=== PATIENT | female | born 1990 | race African-American/Black ===

== ENCOUNTER 2017-01-31 09:37 | Emergency (ER) | payer OTHER ==
[~2017-01-31] VITALS: Ht 172.7 cm; Wt 61.2 kg
[2017-01-31 09:37] VITALS: BP_SYST 143
--- NOTE | 2017-01-31 09:37 | NUR ---
BROUGHT BACK TO BED #8 AND TRIAGED. REPORT GIVEN TO YEN
--- NOTE | 2017-01-31 09:40 | NUR ---
ER at bedside examining patient.
--- NOTE | 2017-01-31 09:40 | NUR ---
Pt states has abdominal pain, diarrhea, nausea for the past couple days. Pt states not able to eat or drink and pain is 10/10. Pt has weakness and chills but no fever. No other injuries/complaints per pt or noted.
[2017-01-31] MEDS ORDERED: NACL 0.9% 1,000 ML IV ONE (10:07)
[2017-01-31] MEDS ORDERED: HALOPERIDOL LACTATE 5 MG/ML VIAL IVP ONE (10:15)
[2017-01-31 10:16] LABS: BILIRUBIN,URINE NEGATIVE (NEGATIVE); BLOOD, URINE NEGATIVE (NEGATIVE); CLARITY/URINE SL HAZY (CLEAR); COLOR,URINE YELLOW (YELLOW); GLUCOSE,URINE NEGATIVE (NEGATIVE); KETONES,URINE 2+ (NEGATIVE); LEUKOCYTE ESTERASE ,URINE NEGATIVE (NEGATIVE); NITRITE, URINE NEGATIVE (NEGATIVE); PH,URINE 8.5 (5.0-8.0); PROTEIN URINE 1+ (NEGATIVE)
[2017-01-31 10:23] LABS: EOSINOPHILS # (AUTO) 0.1 K/uL (0.0-0.4); EOSINOPHILS % (AUTO) 1.2 % (0.0-4.0); LYMPHOCYTES # (AUTO) 1.4 K/uL (1.0-5.5)
[2017-01-31 10:24] LABS: BACTERIA,URINE FEW /HPF (None Seen); MUCUS,URINE 1+ /LPF (None Seen); RBC,URINE 0-3 /HPF (0-3); WBC,URINE 0-3 /HPF (0-3)
[2017-01-31 10:25] LABS: HEMATOCRIT 40.5 % (36-48); HEMOGLOBIN 13.5 g/dL (12.0-16.0); MEAN CORPUSCULAR HEMOGLOBIN 30 pg (27-31); MEAN CORPUSCULAR HGB CONC 33 % (32-36); MEAN CORPUSCULAR VOLUME 89 fL (79.0-98.0); PLATELET COUNT (AUTO) 277 K/uL (130-430); RED BLOOD CELL COUNT(AUTO) 4.55 MIL/uL (4.2-6.2); RED CELL DISTRIBUTION WIDTH 14.1 % (9.0-15.0); WHITE BLOOD COUNT (AUTO) 12.2 K/uL (4.8-10.8)
[2017-01-31 10:29] LABS: LYMPHOCYTES % (AUTO) 11.3 % (20.5-51.5); NEUTROPHILS % (AUTO) 83.1 % (40.0-70.0)
[2017-01-31 10:30] LABS: BASOPHILS # (AUTO) 0.2 K/uL (0.0-0.2); BASOPHILS % (AUTO) 1.8 % (0.0-2.0); MONOCYTES # (AUTO) 0.3 K/uL (0.0-1.0); MONOCYTES % (AUTO) 2.6 % (1.7-9.3); NEUTROPHILS # (AUTO) 10.4 K/uL (1.8-7.7)
[2017-01-31] MEDS ORDERED: KETOROLAC TROMETHAMINE 30 MG VIAL IVP ONE (10:30)
--- NOTE | 2017-01-31 10:30 | NUR ---
Pt is resting comfortably with no complaints of pain
[2017-01-31 10:32] LABS: CALCIUM 9.3 mg/dL (8.4-11.0); CREATININE 0.73 mg/dL (0.55-1.30); POTASSIUM 3.8 mmol/L (3.5-5.1)
[2017-01-31 10:36] LABS: ALBUMIN 4.2 g/dL (3.4-4.8); TOTAL BILIRUBIN 0.7 mg/dL (0.0-1.0); TOTAL PROTEIN, SERUM 7.9 g/dL (6.4-8.3)
[2017-01-31 11:45] VITALS: BP_SYST 108
--- NOTE | 2017-01-31 11:45 | NUR ---
Patient given written and verbal discharge instructions and verbalizes understanding. ER MD discussed with patient the results and treatment provided. Patient in stable condition. ID arm band removed. IV catheter removed intact and dressing applied, no active bleeding. Rx of zofran given. Patient educated on pain management and to follow up with PMD. Pain Scale 0. Opportunity for questions provided and answered.
== END 2017-01-31 11:45 | disposition home or self-care (01) ==
LOC: SED 09:39
DX: R10.13 Epigastric pain (principal); F12.90 Cannabis use, unspecified, uncomplicated
CPT/HCPCS: 36415; 80053; 81000; 83690; 85025; 96361; 96374; 96375; 99284; J1630; J1885; J7030